=== PATIENT | female | born 1995 | race American Indian/Alaskan Native ===

== ENCOUNTER 2017-02-25 23:59 | Outpatient (CLI) | payer MEDICAID ==
[2017-02-26] MEDS ORDERED: LACTATED RINGERS 1,000 ML IV ONE (00:15)
[2017-02-26 00:49] LABS: Bacteria,Urine 1+ /HPF (Negative); Bilirubin,Urine NEG (Negative); Blood,Urine NEG (Negative); Ketones,Urine NEG (Negative); Leukocyte Esterase,Urine TR (Negative); Mucus,Urine 2+ /HPF; Nitrite,Urine NEG (Negative); Urobilinogen,Urine < 2.0 mg/dL (<2.0)
[2017-02-26 01:35] VITALS: BP 112/63
[2017-02-26] MEDS ORDERED: TYLENOL PO ONE (01:44)
== END 2017-02-26 01:56 | disposition home or self-care (01) ==
LOC: TRG 23:59
PROVIDERS: ATTEND Obstetrics & Gynecology
DX: O13.3 Gestational [pregnancy-induced] hypertension without significant proteinuria, third trimester (principal); O26.893 Other specified pregnancy related conditions, third trimester; R10.9 Unspecified abdominal pain; Z3A.30 30 weeks gestation of pregnancy
CPT/HCPCS: 59025; 81001

== ENCOUNTER 2017-12-26 07:35 | Emergency (ER) | payer MEDICAID ==
[2017-12-26 08:20] VITALS: BP 138/54
== END 2017-12-26 19:02 | disposition left against medical advice (07) ==
LOC: ED 07:35
DX: R20.0 Anesthesia of skin (principal); Z53.21 Procedure and treatment not carried out due to patient leaving prior to being seen by health care provider

== ENCOUNTER 2018-02-14 23:26 | Emergency (ER) | payer MEDICAID ==
[2018-02-15 01:24] LABS: Basophils # (Auto) 0.1 K/mm3 (0.0-0.1); Basophils % (Auto) 0.8 % (0.0-1.8); Eosinophils # (Auto) 0.6 K/mm3 (0.0-0.4); Eosinophils % (Auto) 8.4 % (0.0-4.3); Hematocrit 32.8 % (30.3-42.9); Hemoglobin 10.3 gm/dl (10.1-14.3); Lymphocytes # (Auto) 2.5 K/mm3 (1.2-5.4); Lymphocytes % (Auto) 37.5 % (13.4-35.0); Mean Corpuscular HGB Conc 31 % (30-34); Mean Corpuscular Volume 71 fl (79-97); Monocytes # (Auto) 0.4 K/mm3 (0.0-0.8); Monocytes % (Auto) 6.2 % (0.0-7.3); Platelet Count 282 K/mm3 (140-440); Red Cell Distribution Width 18.5 % (13.2-15.2)
[2018-02-15 01:40] LABS: Alanine Aminotransferase 9 units/L (7-56); Albumin 4.1 g/dL (3.9-5); BUN/Creatinine Ratio 18; Blood Urea Nitrogen 11 mg/dL (7-17); Hemolysis Index 0
[2018-02-15 01:53] LABS: Mean Corpuscular Hemoglobin 22 pg (28-32)
[2018-02-15 02:58] LABS: Bilirubin,Urine NEG (Negative); Blood,Urine NEG (Negative); Color,Urine Yellow (Yellow); Mucus,Urine 2+ /HPF; Protein,Urine <15 mg/dL mg/dL (Negative); Urobilinogen,Urine < 2.0 mg/dL (<2.0)
== END 2018-02-15 00:15 | disposition left against medical advice (07) ==
LOC: ED 23:26
DX: M79.641 Pain in right hand (principal); Z53.21 Procedure and treatment not carried out due to patient leaving prior to being seen by health care provider
CPT/HCPCS: 36415; 80053; 81001; 84703; 85025

== ENCOUNTER 2018-03-23 16:55 | Emergency (ER) | payer MEDICAID ==
[2018-03-23] MEDS ORDERED: NACL 0.9% 1000 ML 1,000 ML IV ONE (17:15)
[2018-03-23 17:48] LABS: Basophils % (Auto) 0.5 % (0.0-1.8); Eosinophils # (Auto) 0.1 K/mm3 (0.0-0.4); Eosinophils % (Auto) 2.2 % (0.0-4.3); Hematocrit 32.2 % (30.3-42.9); Hemoglobin 10.1 gm/dl (10.1-14.3); Lymphocytes # (Auto) 2.1 K/mm3 (1.2-5.4); Lymphocytes % (Auto) 38.1 % (13.4-35.0); Mean Corpuscular HGB Conc 31 % (30-34); Mean Corpuscular Volume 72 fl (79-97); Monocytes # (Auto) 0.5 K/mm3 (0.0-0.8); Monocytes % (Auto) 9.2 % (0.0-7.3); Platelet Count 280 K/mm3 (140-440); Red Blood Count 4.48 M/mm3 (3.65-5.03); Red Cell Distribution Width 18.4 % (13.2-15.2)
[2018-03-23 17:49] LABS: Mean Corpuscular Hemoglobin 23 pg (28-32)
[2018-03-23 18:20] LABS: Alanine Aminotransferase 11 units/L (7-56); Albumin 3.8 g/dL (3.9-5); BUN/Creatinine Ratio 15; Blood Urea Nitrogen 9 mg/dL (7-17); Calcium 9.2 mg/dL (8.4-10.2); Hemolysis Index 6; Lipase 16 units/L (13-60)
[2018-03-23 18:23] LABS: Bacteria,Urine 1+ /HPF (Negative); Bilirubin,Urine NEG (Negative); Blood,Urine SM (Negative); Color,Urine Yellow (Yellow); Mucus,Urine 3+ /HPF; Protein,Urine <15 mg/dL mg/dL (Negative)
[2018-03-23 21:03] LABS: HCG Qualitative,Urine Negative (Negative)
[2018-03-23] MEDS ORDERED: ALUM-MAG HYDROX-SIMETH 200-200-20MG/5ML PO ONE (21:19)
[2018-03-23] MEDS ORDERED: LIDOCAINE VISCOUS 2% PO ONE (21:19)
[2018-03-23] MEDS ORDERED: ZOFRAN ODT PO ONE (21:19)
--- NOTE | 2018-03-23 21:55 | Emergency Department Report ---
ED Abdominal Pain HPI - General Chief Complaint: Abdominal Pain Stated Complaint: ABDOM PAIN Time Seen by Provider: 03/23/18 21:08 Source: patient Mode of arrival: Ambulatory Limitations: No Limitations - History of Present Illness Initial Comments: 4 days of constant epigastric/left upper quadrant abdominal pain. Made worse sometimes with food. Associated with nausea, but no vomiting. Nonexertional. Not affected by urination. Severity scale (0 -10): 9 - Related Data Home Medications Medication Instructions Recorded Confirmed Last Taken Vit 90/Iron Fum/Folic 01/25/15 01/25/15 01/25/15 [ Formula] Previous Rx's Medication Instructions Recorded Last Taken Type Ondansetron [Zofran Odt] 4 mg PO Q8HR PRN #20 tab.rapdis 10/21/16 Unknown Rx Sucralfate [Carafate] 1 gm PO Q6HR PRN #1 bottle 03/23/18 Unknown Rx Allergies Allergy/AdvReac Type Severity Reaction Status Date / Time No Known Allergies Allergy Verified 08/29/13 01:12 ED Review of Systems ROS: Stated complaint: ABDOM PAIN Other details as noted in HPI ED Past Medical Hx - Past Medical History Previous Medical History?: Yes Hx Hypertension: No Hx Diabetes: No Hx Deep Vein Thrombosis: No Hx Renal Disease: No Hx Sickle Cell Disease: No Hx Seizures: No Hx Asthma: No Hx HIV: No Additional medical history: Gallstones - Surgical History Past Surgical History?: Yes Additional Surgical History: x 2 - Social History Smoking Status: Never Smoker Substance Use Type: None - Medications Home Medications: Home Medications Medication Instructions Recorded Confirmed Last Taken Type Vit 90/Iron Fum/Folic 01/25/15 01/25/15 01/25/15 History [ Formula] Ondansetron [Zofran Odt] 4 mg PO Q8HR PRN #20 tab.rapdis 10/21/16 Unknown Rx Sucralfate [Carafate] 1 gm PO Q6HR PRN #1 bottle 03/23/18 Unknown Rx ED Physical Exam - General Limitations: No Limitations ED Course Vital Signs 03/23/18 03/23/18 17:12 20:30 Temperature 98.3 F 97.9 F Pulse Rate 89 80 Respiratory 20 20 Rate Blood Pressure 133/90 Blood Pressure 148/94 [Left] O2 Sat by Pulse 99 100 Oximetry ED Medical Decision Making - Lab Data Result diagrams: 03/23/18 17:22 03/23/18 17:22 - Medical Decision Making 22-year-old female with past medical history of gallstones that presents to the ER with epigastric and left upper quadrant abdominal pain. Patient is well- appearing. Vital signs are stable. Labwork unremarkable. Patient was given a GI cocktail, which greatly appreciated or symptoms. Likely patient is having gastritis. No risk factors for PE. Patient is perc negative. She'll be discharged on a daily Pepcid with Carafate as needed. - Differential Diagnosis pe, acs, gastritis, gerd, biliary colic, pancreatitis, constipation, uti, Critical care attestation.: If time is entered above; I have spent that time in minutes in the direct care of this critically ill patient, excluding procedure time. ED Disposition Clinical Impression: Gastritis Disposition: DC-01 TO HOME OR SELFCARE Is pt being admited?: No Condition: Stable Instructions: Abdominal Pain (ED), Gastritis (ED), Diet for Ulcers and Gastritis (ED) Additional Instructions: Start taking a daily 20 mg pepcid for the next week. This can be purchased over- the-counter. Prescriptions: Sucralfate [Carafate] 1 gm PO Q6HR PRN #1 bottle PRN Reason: stomach pain Referrals: PRIMARY CARE, [Primary Care Provider] - 3-5 Days
[2018-03-23 22:43] VITALS: BP 156/93
== END 2018-03-23 22:46 | disposition home or self-care (01) ==
LOC: ED 16:55
DX: K29.70 Gastritis, unspecified, without bleeding (principal)
CPT/HCPCS: 36415; 80053; 81001; 81025; 83690; 85025; 99283; Q0162

== ENCOUNTER 2019-05-30 17:56 | Emergency (ER) | payer MEDICAID ==
--- NOTE | 2019-05-30 18:05 | Emergency Department Report ---
Blank Doc - Documentation Documentation: This is a 24-year-old female that presents with left sided chest pain with some nausea. Deneis any SOB. denies any radiation of pain. This initial assessment/diagnostic orders/clinical plan/treatment(s) is/are subject to change based on patient's health status, clinical progression and re- assessment by fellow clinical providers in the ED. Further treatment and workup at subsequent clinical providers discretion. Patient/guardians urged not to elope from the ED as their condition may be serious if not clinically assessed and managed. Initial orders include: 1- Patient sent to [facility] for further evaluation and treatment 2-labs 3- EKG 4- CXR
[2019-05-30 18:06] VITALS: BP 139/58
[2019-05-30 19:03] LABS: Basophils % (Auto) 0.5 % (0.0-1.8); Eosinophils # (Auto) 0.2 K/mm3 (0.0-0.4); Eosinophils % (Auto) 3.8 % (0.0-4.3); Hematocrit 33.5 % (30.3-42.9); Hemoglobin 10.9 gm/dl (10.1-14.3); Lymphocytes # (Auto) 2.1 K/mm3 (1.2-5.4); Lymphocytes % (Auto) 37.9 % (13.4-35.0); Mean Corpuscular HGB Conc 32 % (30-34); Mean Corpuscular Volume 75 fl (79-97); Monocytes # (Auto) 0.4 K/mm3 (0.0-0.8); Platelet Count 230 K/mm3 (140-440); Red Blood Count 4.45 M/mm3 (3.65-5.03); Red Cell Distribution Width 18.9 % (13.2-15.2)
--- NOTE | 2019-05-30 19:14 | XRay Report ---
CHEST 2 VIEWS 1827 INDICATION / CLINICAL INFORMATION: Chest Pain. COMPARISON: 09/08/2018 FINDINGS: SUPPORT DEVICES: None. HEART / MEDIASTINUM: No significant abnormality. LUNGS / PLEURA: No significant pulmonary or pleural abnormality. No pneumothorax. ADDITIONAL FINDINGS: No significant additional findings. IMPRESSION: No significant acute abnormality Signer Name: Wesly Randolph MD Signed: 05/30/2019 7:10 PM Workstation Name: [id number]
[2019-05-30 19:26] LABS: BUN/Creatinine Ratio 10; Blood Urea Nitrogen 6 mg/dL (7-17); Calcium 9.4 mg/dL (8.4-10.2); Hemolysis Index 11
[2019-05-30] MEDS ORDERED: LIDOCAINE VISCOUS 2% PO ONE (20:51)
[2019-05-30] MEDS ORDERED: ALUM-MAG HYDROX-SIMETH 200-200-20MG/5ML PO ONE (20:51)
[2019-05-30] MEDS ORDERED: TYLENOL PO ONE (20:51)
--- NOTE | 2019-05-30 21:49 | Emergency Department Report ---
ED Chest Pain HPI - General Chief Complaint: Chest Pain Stated Complaint: CHEST PAIN Time Seen by Provider: 05/30/19 18:04 Source: patient Mode of arrival: Ambulatory Limitations: No Limitations - History of Present Illness Initial Comments: This is a 24-year-old female that presents with left sided chest pain with some nausea intermittent over past month . Deneis any SOB. denies any radiation of pain. no diaphoresis no no back pain MD Complaint: chest pain Onset/Timin -: month(s) Onset: after eating Pain Location: left chest Severity: moderate Severity scale (0 -10): 3 Quality: sharp Consistency: intermittent Improves With: nothing Worsens With: nothing re: nausea, vomting Other Symptoms: acid taste in mouth, burping Treatments Prior to Arrival: none - Related Data Home Medications Medication Instructions Recorded Confirmed Last Taken Vit 90/Iron Fum/Folic 01/25/15 01/25/15 01/25/15 [ Formula] Previous Rx's Medication Instructions Recorded Last Taken Type Sucralfate [Carafate] 1 gm PO Q6HR PRN #1 bottle 03/23/18 Unknown Rx Acetaminophen [Acetaminophen TAB] 650 mg PO Q6HR PRN #30 tablet 05/30/19 Unknown Rx Ondansetron [Zofran ODT TAB] 4 mg PO Q8HR PRN #20 tab.rapdis 05/30/19 Unknown Rx Allergies Allergy/AdvReac Type Severity Reaction Status Date / Time No Known Allergies Allergy Verified 08/29/13 01:12 Heart Score - HEART Score History: Slightly suspicious EKG: Normal Age: < 45 Risk factors: No known risk factors Troponin: < normal limit HEART Score: 0 ED Review of Systems ROS: Stated complaint: CHEST PAIN Other details as noted in HPI Constitutional: denies: chills, fever Eyes: denies: eye pain, eye discharge, vision change ENT: denies: ear pain, throat pain Respiratory: denies: cough, shortness of breath, wheezing Cardiovascular: chest pain. denies: palpitations Endocrine: no symptoms reported Gastrointestinal: nausea, vomiting. denies: abdominal pain, diarrhea, constipation, hematemesis, melena Genitourinary: denies: urgency, dysuria, frequency, hematuria, discharge, dyspareunia Musculoskeletal: denies: back pain, joint swelling, arthralgia Skin: denies: rash, lesions Neurological: denies: headache, weakness, paresthesias Psychiatric: denies: anxiety, depression Hematological/Lymphatic: denies: easy bleeding, easy bruising ED Past Medical Hx - Past Medical History Previous Medical History?: Yes Hx Hypertension: No Hx Diabetes: No Hx Deep Vein Thrombosis: No Hx Renal Disease: No Hx Sickle Cell Disease: No Hx Seizures: No Hx Asthma: No Hx HIV: No Additional medical history: Gallstones - Surgical History Past Surgical History?: Yes Additional Surgical History: x 2 - Social History Smoking Status: Never Smoker Substance Use Type: None - Medications Home Medications: Home Medications Medication Instructions Recorded Confirmed Last Taken Type Vit 90/Iron Fum/Folic 01/25/15 01/25/15 01/25/15 History [ Formula] Sucralfate [Carafate] 1 gm PO Q6HR PRN #1 bottle 03/23/18 Unknown Rx Acetaminophen [Acetaminophen TAB] 650 mg PO Q6HR PRN #30 tablet 05/30/19 Unknown Rx Ondansetron [Zofran ODT TAB] 4 mg PO Q8HR PRN #20 tab.rapdis 05/30/19 Unknown Rx ED Physical Exam - General Limitations: No Limitations General appearance: alert, in no apparent distress - Head Head exam: Present: atraumatic, normocephalic - Eye Eye exam: Present: normal appearance, PERRL, EOMI Pupils: Present: normal accommodation - ENT ENT exam: Present: mucous membranes moist, TM's normal bilaterally. Absent: normal orophraynx, normal external ear exam - Neck Neck exam: Present: normal inspection, full ROM. Absent: tenderness, meningismus, lymphadenopathy, thyromegaly - Respiratory Respiratory exam: Present: normal lung sounds bilaterally, chest wall tenderness. Absent: respiratory distress, wheezes, rales, rhonchi, stridor - Cardiovascular Cardiovascular Exam: Present: regular rate, normal rhythm, normal heart sounds. Absent: systolic murmur, diastolic murmur, rubs, gallop - GI/Abdominal GI/Abdominal exam: Present: soft, normal bowel sounds. Absent: distended, tenderness, guarding, rebound, rigid, bruit, hernia - Rectal Rectal exam: Present: deferred - Extremities Exam Extremities exam: Present: normal inspection, full ROM, normal capillary refill. Absent: tenderness, pedal edema, joint swelling, calf tenderness - Back Exam Back exam: Present: normal inspection, full ROM. Absent: tenderness, CVA tenderness (R), CVA tenderness (L), muscle spasm, paraspinal tenderness, vertebral tenderness, rash noted - Neurological Exam Neurological exam: Present: alert, oriented X3, CN II-XII intact, normal gait, reflexes normal. Absent: motor sensory deficit - Psychiatric Psychiatric exam: Present: normal affect, normal mood - Skin Skin exam: Present: warm, dry, intact, normal color. Absent: rash ED Course Vital Signs 05/30/19 18:04 Temperature 98.7 F Pulse Rate 80 Respiratory 16 Rate Blood Pressure 139/58 [Left] O2 Sat by Pulse 100 Oximetry BERNARD score - Bernard Score Age > 65: (0) No Aspirin use within the Past 7 Days: (0) No 3 or more CAD Risk Factors: (0) No 2 or more Angina events in past 24 hrs: (0) No Known CAD with more than 50% Stenosis: (0) No Elevated Cardiac Markers: (0) No ST Deviation Greater than 0.5mm: (0) No BERNARD Score: 0 ED Medical Decision Making - Lab Data Result diagrams: 05/30/19 18:48 05/30/19 18:48 Labs 05/30/19 05/30/19 05/30/19 18:48 18:48 18:48 WBC 5.5 RBC 4.45 Hgb 10.9 Hct 33.5 MCV 75 L MCH 24 L MCHC 32 RDW 18.9 H Plt Count 230 Lymph % (Auto) 37.9 H [place] % (Auto) 7.0 Eos % (Auto) 3.8 Baso % (Auto) 0.5 Lymph # 2.1 [place] # 0.4 Eos # 0.2 Baso # 0.0 Seg Neutrophils % 50.8 Seg Neutrophils # 2.8 Sodium 134 L Potassium 4.0 Chloride 101.5 Carbon Dioxide 19 L Anion Gap 18 BUN 6 L Creatinine 0.6 L Estimated GFR > 60 BUN/Creatinine Ratio 10 Glucose 76 Calcium 9.4 Troponin T < 0.010 HCG, Qual Positive HCG, Quant 05/30/19 20:58 WBC RBC Hgb Hct MCV MCH MCHC RDW Plt Count Lymph % (Auto) [place] % (Auto) Eos % (Auto) Baso % (Auto) Lymph # [place] # Eos # Baso # Seg Neutrophils % Seg Neutrophils # Sodium Potassium Chloride Carbon Dioxide Anion Gap BUN Creatinine Estimated GFR BUN/Creatinine Ratio Glucose Calcium Troponin T HCG, Qual HCG, Quant 52450 H - EKG Data EKG shows normal: sinus rhythm, axis, intervals, QRS complexes, ST-T waves Rate: normal - EKG Data Interpretation: normal EKG (EKG interp by ed attending ) - Radiology Data Radiology results: report reviewed, image reviewed Ordering Physician: ROMEO HERNANDEZ NP Date of Service: 05/30/19 Procedure(s): XR chest routine 2V Accession Number(s): [id number] cc: ROMEO HERNANDEZ NP Fluoro Time In Minutes: CHEST 2 VIEWS 1827 INDICATION / CLINICAL INFORMATION: Chest Pain. COMPARISON: 09/08/2018 FINDINGS: SUPPORT DEVICES: None. HEART / MEDIASTINUM: No significant abnormality. LUNGS / PLEURA: No significant pulmonary or pleural abnormality. No pneumothorax. ADDITIONAL FINDINGS: No significant additional findings. IMPRESSION: No significant acute abnormality Signer Name: Wesly Randolph MD Signed: 05/30/2019 7:10 PM Workstation Name: [id number] Transcribed By: GJ Dictated By: Wesly Randolph MD Electronically Authenticated By: Wesly Randolph MD Signed Date/Time: 05/30/191909 DD/ 08 TD/TT: - Medical Decision Making CXR normal no infiltrates no opacities, US: single IUP 7 weeks and 2 days, PERC PE: 0, there is no lower extrem edema, no sob , heart score is 0, BERNARD score is 0, pain relieved by GI cocktail plan dc to helf in stable condition, pt accompanies by. Critical care attestation.: If time is entered above; I have spent that time in minutes in the direct care of this critically ill patient, excluding procedure time. ED Disposition Clinical Impression: GERD (gastroesophageal reflux disease) Qualifiers: Esophagitis presence: without esophagitis Qualified Code(s): K21.9 - Gastro-esophageal reflux disease without esophagitis Qualifiers: Weeks of gestation: less than 8 weeks Qualified Code(s): Z3A.01 - Less than 8 weeks gestation of Disposition: DC-01 TO HOME OR SELFCARE Is pt being admited?: No Does the pt Need Aspirin: No Condition: Stable Instructions: (ED), Chest Pain (ED) Additional Instructions: ekg : NSR, cxr: normal, US Abd pelvis, pos preg, hcg quant tylenol, zofran, follow up with pcp in 2-3 days Prescriptions: Acetaminophen [Acetaminophen TAB] 650 mg PO Q6HR PRN #30 tablet PRN Reason: Pain Ondansetron [Zofran ODT TAB] 4 mg PO Q8HR PRN #20 tab.rapdis PRN Reason: Nausea And Vomiting Referrals: PRIMARY CARE, [Primary Care Provider] - 3-5 Days [facility] [Provider Group] - 3-5 Days Forms: Work/School Release Form(ED) Time of Disposition: 22:05
--- NOTE | 2019-05-30 21:51 | Ultrasound Report ---
OB ultrasound FINDINGS: Viable intrauterine is seen with crown-rump length measurements corresponding to an MA of 7 weeks 2 days for an THO of 01/14/2020. This is ahead of the clinical dates by almost 3 week s. heart rate is 133 bpm. Left ovary is normal. Right ovary contains a 2.2 cm cyst. No hemorrha ge or free fluid. No significant abnormality. IMPRESSION: Viable 7 week 2 day IUP. Signer Name: Francis Greer MD Signed: 05/30/2019 9:46 PM Workstation Name: [id number]
[2019-05-30 22:40] LABS: Bilirubin,Urine NEG (Negative); Blood,Urine NEG (Negative); Color,Urine Yellow (Yellow); Mucus,Urine 2+ /HPF; Urobilinogen,Urine < 2.0 mg/dL (<2.0)
== END 2019-05-30 22:17 | disposition home or self-care (01) ==
LOC: ED 17:56
DX: O99.611 Diseases of the digestive system complicating pregnancy, first trimester (principal); K21.9 Gastro-esophageal reflux disease without esophagitis; Z79.899 Other long term (current) drug therapy; Z3A.01 Less than 8 weeks gestation of pregnancy
CPT/HCPCS: 36415; 71046; 76801; 80048; 81001; 84484; 84702; 84703; 85025; 93005; 93010

== ENCOUNTER 2019-06-06 15:07 | Emergency (ER) | payer MEDICAID ==
--- NOTE | 2019-06-06 15:25 | Emergency Department Report ---
Blank Doc - Documentation Documentation: 24-year-old female that presents with chest tightness and sob. Stated is 7 we eks . This initial assessment/diagnostic orders/clinical plan/treatment(s) is/are subject to change based on patient's health status, clinical progression and re- assessment by fellow clinical providers in the ED. Further treatment and workup at subsequent clinical providers discretion. Patient/guardians urged not to elope from the ED as their condition may be serious if not clinically assessed and managed. Initial orders include: 1- Patient sent to [facility] for further evaluation and treatment 2- labs 3- EKG 4- UA
[2019-06-06 15:26] VITALS: BP 124/88
[2019-06-06 15:49] LABS: Basophils # (Auto) 0.1 K/mm3 (0.0-0.1); Basophils % (Auto) 0.9 % (0.0-1.8); Eosinophils % (Auto) 0.8 % (0.0-4.3); Hematocrit 34.5 % (30.3-42.9); Hemoglobin 11.2 gm/dl (10.1-14.3); Lymphocytes # (Auto) 1.7 K/mm3 (1.2-5.4); Lymphocytes % (Auto) 29.4 % (13.4-35.0); Mean Corpuscular HGB Conc 33 % (30-34); Mean Corpuscular Volume 76 fl (79-97); Monocytes # (Auto) 0.4 K/mm3 (0.0-0.8); Monocytes % (Auto) 6.9 % (0.0-7.3); Platelet Count 260 K/mm3 (140-440); Red Blood Count 4.56 M/mm3 (3.65-5.03); Red Cell Distribution Width 18.4 % (13.2-15.2)
[2019-06-06 15:59] LABS: INR 1.06 (0.87-1.13)
[2019-06-06 16:00] LABS: Partial Thromboplastin Time 29.3 Sec. (24.2-36.6)
[2019-06-06 16:14] LABS: BUN/Creatinine Ratio 8; Blood Urea Nitrogen 4 mg/dL (7-17); Calcium 9.3 mg/dL (8.4-10.2); Hemolysis Index 19
[2019-06-06] MEDS ORDERED: ZOFRAN IV ONE (19:07)
[2019-06-06] MEDS ORDERED: CARAFATE PO ONE (19:07)
--- NOTE | 2019-06-06 19:13 | Emergency Department Report ---
ED General Adult HPI - General Chief complaint: Chest Pain Stated complaint: CHEST PAIN Time Seen by Provider: 06/06/19 15:24 Source: patient Mode of arrival: Stretcher Limitations: No Limitations - History of Present Illness Initial comments: 24-year-old -[place] female presents to the emergency room complaining of intermittent chest burning for 3 days. Patient states that she is 7 weeks . Patient states that it's worse when she vomits. She's been complaining of nausea and vomiting. She is 3 para 2 last menstrual period was 04/19/2019. Patient denies any abdominal pain denies any vaginal bleeding or vaginal discharge. Patient reports no complications during her previous and has no complications with the baby. Patient does report she had a history of gallbladder disease but still has her gallbladder. She currently is not under care. Onset/Timin -: days(s) Location: chest Radiation: non-radiation Severity scale (0 -10): 8 Quality: burning Consistency: intermittent Worsens with: other (vomiting) Associated Symptoms: nausea/vomiting - Related Data Home Medications Medication Instructions Recorded Confirmed Last Taken Vit 90/Iron Fum/Folic 01/25/15 01/25/15 01/25/15 [ Formula] Previous Rx's Medication Instructions Recorded Last Taken Type Sucralfate [Carafate] 1 gm PO Q6HR PRN #1 bottle 03/23/18 Unknown Rx Acetaminophen [Acetaminophen TAB] 650 mg PO Q6HR PRN #30 tablet 05/30/19 Unknown Rx Ondansetron [Zofran ODT TAB] 4 mg PO Q8HR PRN #20 tab.rapdis 05/30/19 Unknown Rx Doxylamine Succinate [Unisom] 25 mg PO BID PRN #40 tablet 06/06/19 Unknown Rx Vit-Fe Fumar-FA [ 1 tab PO QDAY #90 tablet 06/06/19 Unknown Rx Vitamin] Pyridoxine HCl (Vitamin B6) 25 mg PO BID PRN #40 tablet 06/06/19 Unknown Rx [Vitamin B-6 25MG TAB] Sucralfate [Carafate] 1 gm PO Q6HR PRN #20 tablet 06/06/19 Unknown Rx raNITIdine HCl [Zantac] 150 mg PO BID PRN #30 tablet 06/06/19 Unknown Rx Allergies Allergy/AdvReac Type Severity Reaction Status Date / Time No Known Allergies Allergy Verified 08/29/13 01:12 ED Review of Systems ROS: Stated complaint: CHEST PAIN Other details as noted in HPI Comment: All other systems reviewed and negative Gastrointestinal: nausea, vomiting ED Past Medical Hx - Past Medical History Hx Hypertension: No Hx Diabetes: No Hx Deep Vein Thrombosis: No Hx Renal Disease: No Hx Sickle Cell Disease: No Hx Seizures: No Hx Asthma: No Hx HIV: No Additional medical history: Gallstones - Surgical History Additional Surgical History: x 2 - Social History Smoking Status: Never Smoker Substance Use Type: None - Medications Home Medications: Home Medications Medication Instructions Recorded Confirmed Last Taken Type Vit 90/Iron Fum/Folic 01/25/15 01/25/15 01/25/15 History [ Formula] Sucralfate [Carafate] 1 gm PO Q6HR PRN #1 bottle 03/23/18 Unknown Rx Acetaminophen [Acetaminophen TAB] 650 mg PO Q6HR PRN #30 tablet 05/30/19 Un known Rx Ondansetron [Zofran ODT TAB] 4 mg PO Q8HR PRN #20 tab.rapdis 05/30/19 Unknown Rx Doxylamine Succinate [Unisom] 25 mg PO BID PRN #40 tablet 06/06/19 Unknown Rx Vit-Fe Fumar-FA [ 1 tab PO QDAY #90 tablet 06/06/19 Unknown Rx Vitamin] Pyridoxine HCl (Vitamin B6) 25 mg PO BID PRN #40 tablet 06/06/19 Unknown Rx [Vitamin B-6 25MG TAB] Sucralfate [Carafate] 1 gm PO Q6HR PRN #20 tablet 06/06/19 Unknown Rx raNITIdine HCl [Zantac] 150 mg PO BID PRN #30 tablet 06/06/19 Unknown Rx ED Physical Exam - General Limitations: No Limitations General appearance: alert, in no apparent distress - Head Head exam: Present: atraumatic, normocephalic - Eye Eye exam: Present: normal appearance - ENT ENT exam: Present: mucous membranes moist - Neck Neck exam: Present: normal inspection - Respiratory Respiratory exam: Present: normal lung sounds bilaterally. Absent: respiratory distress - Cardiovascular Cardiovascular Exam: Present: regular rate, normal rhythm. Absent: systolic murmur, diastolic murmur, rubs, gallop - GI/Abdominal GI/Abdominal exam: Present: soft, normal bowel sounds - Extremities Exam Extremities exam: Present: normal inspection - Back Exam Back exam: Present: normal inspection - Neurological Exam Neurological exam: Present: alert, oriented X3 - Psychiatric Psychiatric exam: Present: normal affect, normal mood - Skin Skin exam: Present: warm, dry, intact, normal color. Absent: rash ED Course Vital Signs 06/06/19 15:24 Temperature 98.7 F Pulse Rate 71 Respiratory 15 Rate Blood Pressure 124/88 [Left] O2 Sat by Pulse 99 Oximetry ED Medical Decision Making - Lab Data Result diagrams: 06/06/19 15:40 06/06/19 15:40 - Medical Decision Making 24-year-old -[place] female presents to the emergency room complaining of intermittent chest burning for 3 days. Patient states that she is 7 weeks . Patient states that it's worse when she vomits. She's been complaining of nausea and vomiting. She is 3 para 2 last menstrual period was 04/19/2019. Patient denies any abdominal pain denies any vaginal bleeding or vaginal discharge. Patient reports no complications during her previous and has no complications with the baby. Patient does report she had a history of gallbladder disease but still has her gallbladder. She currently is not under care. Please take Carafate only as needed. Zantac 150 mg twice a day. Take Unisom today in V6 twice a day. He can also take joshua root 250 mg every 4-6 hours as needed for nausea or vomiting. Start taking vitamins. Take vitamins. Critical care attestation.: If time is entered above; I have spent that time in minutes in the direct care of this critically ill patient, excluding procedure time. ED Disposition Clinical Impression: Nausea and vomiting during Disposition: DC-01 TO HOME OR SELFCARE Is pt being admited?: No Does the pt Need Aspirin: No Condition: Stable Instructions: Acute Nausea and Vomiting (ED) Prescriptions: Sucralfate [Carafate] 1 gm PO Q6HR PRN #20 tablet PRN Reason: Pain , Severe (7-10) Vit-Fe Fumar-FA [ Vitamin] 1 tab PO QDAY #90 tablet Doxylamine Succinate [Unisom] 25 mg PO BID PRN #40 tablet PRN Reason: Nausea And Vomiting Pyridoxine HCl (Vitamin B6) [Vitamin B-6 25MG TAB] 25 mg PO BID PRN #40 tablet PRN Reason: Nausea And Vomiting raNITIdine HCl [Zantac] 150 mg PO BID PRN #30 tablet PRN Reason: Pain , Severe (7-10) Referrals: PRIMARY CARE, [Primary Care Provider] - 3-5 Days [facility] [Provider Group] - 3-5 Days DORYS BOYKIN MD [Staff Physician] - 3-5 Days Forms: Work/School Release Form(ED)
[2019-06-06] MEDS ORDERED: ZOFRAN ODT ONE (19:51)
== END 2019-06-06 19:51 | disposition home or self-care (01) ==
LOC: ED 15:07
DX: O21.8 Other vomiting complicating pregnancy (principal); O26.891 Other specified pregnancy related conditions, first trimester; R07.9 Chest pain, unspecified; Z87.42 Personal history of other diseases of the female genital tract; Z79.899 Other long term (current) drug therapy; Z3A.01 Less than 8 weeks gestation of pregnancy
CPT/HCPCS: 36415; 80048; 84484; 84702; 85025; 85610; 85730; 93005; 93010; 99284; J2405; Q0162

== ENCOUNTER 2021-03-19 05:45 | Day surgery (SDC) | payer MEDICAID, OTHER ==
[2021-03-17 13:46] LABS: Hematocrit 32.3 % (30.3-42.9); Mean Corpuscular HGB Conc 34 % (30-34); Mean Corpuscular Volume 77 fl (79-97); Platelet Count 297 K/mm3 (140-440); Red Blood Count 4.21 M/mm3 (3.65-5.03); Red Cell Distribution Width 17.3 % (13.2-15.2)
--- NOTE | 2021-03-17 18:57 | History and Physical Report ---
History of Present Illness Date of examination: 03/17/21 Chief complaint: chronic pelvic pain History of present illness: 25 yo c/b Class III Obesity, prior c/s x 2, asthma, ?CHTN, hx Gallstones presenting for surgical management of chronic pelvic pain. Past History Past Medical History: asthma, hypertension, other (gallstones) Past Surgical History: section (x2) Family/Genetic History: hypertension Social history: no significant social history - Obstetrical History : 2 Para: 2 Number of Living Children: 2 Medications and Allergies Allergies Allergy/AdvReac Type Severity Reaction Status Date / Time No Known Allergies Allergy Verified 08/29/13 01:12 Home Medications Medication Instructions Recorded Confirmed Last Taken Type No Known Home Medications [No 03/16/21 03/16/21 Unknown History Reported Home Medications] Review of Systems All systems: negative (expect HPI) - Vital Signs Vital signs: Vital Signs Temp Pulse Resp BP Pulse Ox 97.7 F 97 H 20 159/90 97 03/17/21 12:25 03/17/21 12:25 03/17/21 12:25 03/17/21 12:25 03/17/21 12:25 Temp Pulse Resp BP Pulse Ox 97.7 F 97 H 20 159/90 97 03/17/21 12:25 03/17/21 12:25 03/17/21 12:25 03/17/21 12:25 03/17/21 12:25 - Physical Exam Cardiovascular: Regular rate Lungs: Positive: Clear to auscultation Abdomen: Positive: normal appearance, normal bowel sounds Results Result Diagrams: 03/17/21 12:35 Abnormal lab results 03/17/21 Range/Units 12:35 WBC 4.2 L (4.5-11.0) K/mm3 MCV 77 L (79-97) fl MCH 26 L (28-32) pg RDW 17.3 H (13.2-15.2) % All other labs normal. Assessment and Plan - Patient Problems (1) Chronic pelvic pain in female Status: Acute Plan to address problem: To OR for Robotic assisted laparoscopic diagnostic laparoscopy, possible lysis of adhesion, any other indicated procedures for chronic pelvic pain, concerning for adhesive disease --Questions solicited and answered --Consented in the chart
[2021-03-19] MEDS ORDERED: ACETAMINOPHEN 500 MG TAB PO SCH (06:00)
[2021-03-19] MEDS ORDERED: SCOPOLAMINE TRANSDERMAL PATCH 72 HR TD NR (06:00)
[2021-03-19] MEDS ORDERED: CELECOXIB 200 MG CAP PO NR (06:00)
[2021-03-19] MEDS ORDERED: MIDAZOLAM 2 MG/2 ML INJ IV NR (06:00)
[2021-03-19] MEDS ORDERED: GABAPENTIN 300 MG CAP PO NR (06:00)
[2021-03-19] MEDS ORDERED: LACTATED RINGERS 1,000 ML IV SCH (06:00)
[2021-03-19] MEDS ORDERED: fentaNYL 100 MCG/2 ML INJ ONE (07:05)
[2021-03-19] MEDS ORDERED: propofoL 200 MG/20 ML VIAL IV ONE (07:05)
[2021-03-19] MEDS ORDERED: ROCURONIUM 50 MG/5 ML INJ IV ONE ×3 (07:13→10:21)
[2021-03-19] MEDS ORDERED: ONDANSETRON 4 MG/2 ML INJ ONE (07:13)
[2021-03-19] MEDS ORDERED: dexAMETHasone 20 MG/5 ML VIAL ONE ×3 (07:13→07:14)
[2021-03-19] MEDS ORDERED: MINERAL OIL/PETROLATUM, WHITE OPHTH OINT 3.5 GM ONE (07:13)
[2021-03-19] MEDS ORDERED: LIDOCAINE MPF (2%) 20 MG/1 ML VIAL 5 ML ONE (07:15)
[2021-03-19] MEDS ORDERED: HYDROmorphone 1 MG/1 ML INJ ONE (07:18)
--- NOTE | 2021-03-19 07:20 | Anesthesia Consultation ---
Anesthesia Consult and Med Hx Date of service: 03/19/21 - Airway Anesthetic Teeth Evaluation: Good ROM Head & Neck: Adequate Mental/Hyoid Distance: Adequate Mallampati Class: Class II Intubation Access Assessment: Good - Pulmonary Exam CTA: Yes - Cardiac Exam Cardiac Exam: RRR - Pre-Operative Health Status ASA Pre-Surgery Classification: ASA2 Proposed Anesthetic Plan: General - Pulmonary Hx Smoking: No Hx Asthma: Yes (NO PROBLEMS IN OVER 1 YEAR) Hx Sleep Apnea: No - Cardiovascular System Hx Hypertension: No (DURING ONLY) - Central Nervous System Hx Seizures: No Hx Psychiatric Problems: No - Endocrine Hx Renal Disease: No Hx Hypothyroidism: No Hx Hyperthyroidism: No - Hematic Hx Anemia: No Hx Sickle Cell Disease: No - Other Systems Hx Alcohol Use: No Hx Substance Use: No Hx Cancer: No Hx Obesity: Yes (BMI-53.3 KG)
--- NOTE | 2021-03-19 07:21 | Anesthesia Day of Surgery ---
Anesthesia Day of Surgery - Day of Surgery Patient Examined: Yes Patient H&P Reviewed: Yes Patient is NPO: Yes
--- NOTE | 2021-03-19 07:22 | Anesthesia Consultation ---
Anesthesia Consult and Med Hx Date of service: 03/19/21 - Pre-Operative Health Status ASA Pre-Surgery Classification: ASA2 Proposed Anesthetic Plan: General - Pulmonary Hx Asthma: Yes (no recent inhaler use) Hx Respiratory Symptoms: No Hx Sleep Apnea: No - Cardiovascular System Hx Hypertension: Yes Hx Heart Attack/AMI: No - Central Nervous System CVA: No - Endocrine Hx Renal Disease: No Hx Liver Disease: No Hx Insulin Dependent Diabetes: No Hx Non-Insulin Dependent Diabetes: No Hx Thyroid Disease: No - Other Systems Hx Obesity: Yes (BMI 53)
[2021-03-19] MEDS ORDERED: oxyCODONE /ACETAMINOPHEN 5-325MG TAB PO PRN ×2 (07:23→11:30)
[2021-03-19] MEDS ORDERED: HYDROmorphone 1 MG/1 ML INJ IV PRN (07:23)
[2021-03-19] MEDS ORDERED: ONDANSETRON 4 MG/2 ML INJ IV PRN (07:23)
[2021-03-19] MEDS ORDERED: NEOSTIGMINE 10MG/10 ML INJ MDV ONE (07:30)
[2021-03-19] MEDS ORDERED: KETOROLAC 30 MG/1 ML INJ ONE (07:30)
[2021-03-19] MEDS ORDERED: GLYCOPYRROLATE 0.4 MG/2 ML INJ ONE (07:30)
[2021-03-19] MEDS ORDERED: BUPIVACAINE/PF (0.5%) 5 MG/1 ML 30 ML VIAL INFILTRATI ONE ×2 (07:55→10:06)
[2021-03-19] MEDS ORDERED: SODIUM CHLORIDE 0.9% IRRIG SOLN 2000 ML IR ONE (10:06)
[2021-03-19] MEDS ORDERED: SODIUM CHLORIDE 0.9% IRR 1,500 ML BOTTLE IR ONE (10:06)
--- NOTE | 2021-03-19 11:08 | Procedure Note ---
Date of procedure: 03/19/21 Pre-op diagnosis: chronic pelvic pain Post-op diagnosis: same Procedure: Preoperative diagnosis: 1. Chronic pelvic pain 2/2 adhesions Postoperative diagnosis: Same Operation performed: 1. Exam under anesthesia 2. Robot assisted diagnostic laparoscopy 3. Lysis of adhesions Surgeon: Wes Villegas Cleaning Team Member: Matilde Eason Anesthesia: General endotracheal anesthesia EBL 20 cc IVF 1000 cc UOP 250cc Pathology specimens: 1. none Complications: none Disposition and condition: To the PACU in stable condition Findings: 1. 8 wk size mobile uterus 2. Dense anterior wall adhesions connecting the anterior abdominal wall to the uterine corpus 3. Normal adnexa, appendix, liver, gallbladder Statement of Medical Necessity: 25 yo G 2 P 2 history of chronic pelvic pain presenting for operative management and evaluation of possible adhesive disease secondary to previous operative surgery. Patient tried various medical options, however she continued to have symptoms. The procedure risk, benefits, indications and alternatives were reviewed with patient. She desired definitive surgical management and declined further medical management of her condition. Description of operation: After obtaining informed consent the patient was taken to the operating room where satisfactory general endotracheal anesthesia was established. The patient was placed in supine position ensuring proper positioning and cushioning to avoid nerve injury. The arms were tucked at the beginning of the procedure. An exam under anesthesia was performed with the findings noted below. She was prepped and draped in the usual sterile fashion. A Najera catheter was placed. A medium VCare manipulator was placed without difficulty and sutured to the cervix anteriorly and posteriorly. Starting with the accessory port, a 8 mm incision was made at the left midclavicular line and a 5 mm Airseal trocar was placed without difficulty. Pneumoperitoneum was obtained to 15L CO2. The abdomen was inspected with the findings noted above. Next, the 12 mm robotic trocar was placed at the umbilicus for the camera port. Next, a 8 mm robotic trocar was placed in the left lateral aspect of the abdomen, superior and medial to the left ASIS. The last 8mm robotic trocar was placed on contralateral right side in a similar fashion. The patient was then placed in steep Trendelenburg position to allow for the intestines to enter into the upper abdomen. Next, the robot was docked with the patient that difficulty. First, the ureters were identified bilaterally with peristalsis noted. Using combination of the vessel sealer, prograsp grasper, and monopolar scissors with energy the adhesions were taken down stepwise in order to avoid injury to the surrounding anatomy. On 2 separate occasions the bladder was backfilled with approximately 180 cc of normal saline in order to visualize the bladder wall in order to avoid injury. The anatomy was restored and Interceed was used on the anterior uterine corpus in order to avoid recurrence of adhesions. The 12 mm camera trocar was removed. The Freeman Nielsen closure device was used in order to close the 12 mm trocar port the fascial level. The patient was returned to dorsal supine position. The remaining trochars were removed without difficulty and the pneumoperitoneum was reduced. The laparoscopic incisions were closed with 4-0 Monocryl and dressed with Dermabond. The patient was extubated without difficulty and taken to recovery room in stable condition. There were no surgical anesthetic complications. Anesthesia: RACHEL Surgeon: WES VILLEGAS JR Cleaning Team Member: MAN EASON Estimated blood loss: other (20cc) IV fluids: 1,000 Urine output: 250 Pathology: none Condition: stable Disposition: same day
[2021-03-19] MEDS ORDERED: hydrALAZINE 20 MG/1 ML INJ IV PRN (11:18)
[2021-03-19] MEDS ORDERED: IBUPROFEN 600 MG TAB PO PRN (11:30)
--- NOTE | 2021-03-19 13:37 | Post Anesthesia Evaluation ---
- Post Anesthesia Evaluation Patient Participated: Yes Airway Patent: Yes Stable Respiratory Function: Yes Nausea/Vomiting: Yes (nausea, improved with IV antiemetics) Temp > 96.8F: Yes Pain Manageable: Yes Adequeate Hydration: Yes Anesthesia Complications: No
[2021-03-19 16:06] VITALS: BP 143/69
== END 2021-03-19 05:46 | disposition home or self-care (01) ==
LOC: OR 05:45
PROVIDERS: ATTEND Obstetrics & Gynecology
DX: R10.2 Pelvic and perineal pain (principal); G89.29 Other chronic pain; N73.6 Female pelvic peritoneal adhesions (postinfective); Z20.822 Contact with and (suspected) exposure to COVID-19; E66.01 Morbid (severe) obesity due to excess calories; I10 Essential (primary) hypertension; J45.909 Unspecified asthma, uncomplicated; K21.9 Gastro-esophageal reflux disease without esophagitis; Z79.899 Other long term (current) drug therapy; Z98.891 History of uterine scar from previous surgery; Z87.440 Personal history of urinary (tract) infections; Z83.3 Family history of diabetes mellitus; Z68.43 Body mass index [BMI] 50.0-59.9, adult; Z82.49 Family history of ischemic heart disease and other diseases of the circulatory system
CPT/HCPCS: 36415; 58578; 84703; 85027; 86850; 86900; 86901; A4217; C1765; J0360; J1100; J1170; J1885; J2250; J2405; J2704; J2710; J3010; J3490; J7120; S2900; U0003

== ENCOUNTER 2021-03-20 19:11 | Emergency (ER) | payer MEDICAID ==
[2021-03-20] MEDS ORDERED: ASPIRIN 325 MG TAB PO ONE (19:40)
[2021-03-20] MEDS ORDERED: LORazepam 2 MG/ML VIAL IV ONE (19:40)
--- NOTE | 2021-03-20 19:45 | Event Note ---
ED Screening Note Date of service: 03/20/21 Time: 19:42 ED Screening Note: Patient is a 25-year-old -[place] female with a history of morbid obesity and anxiety who presents to the ED with complaint of acute onset persistent shortness of breath, chest pain, abdominal pain for the last 2 days after undergoing surgery to remove adhesions in her abdomen by her CRYPTOZOOLOGIST physician Dr. Ruiz patient denies dizziness, syncope, 2 days ago. Patient states that the shortness of breath is worse with ambulation or any exertion, and that this worsens the chest pain. Nausea and vomiting, diarrhea, headache, palpitations, change in vision or back pain, fever and chills. This initial assessment/diagnostic orders/clinical plan/treatment(s) is/are subject to change based on patients health status, clinical progression and re- assessment by fellow clinical providers in the ED. Further treatment and workup at subsequent clinical providers discretion. Patient/guardian urged not to elope from the ED as their condition may be serious if not clinically assessed and managed. Initial orders include: CBC, CMP, EKG, troponin, CTA chest
[2021-03-20 20:04] LABS: Basophils # (Auto) 0.1 K/mm3 (0.0-0.1); Basophils % (Auto) 0.8 % (0.0-1.8); Eosinophils % (Auto) 0.4 % (0.0-4.3); Hematocrit 32.4 % (30.3-42.9); Hemoglobin 10.5 gm/dl (10.1-14.3); Lymphocytes # (Auto) 2.4 K/mm3 (1.2-5.4); Lymphocytes % (Auto) 32.7 % (13.4-35.0); Mean Corpuscular HGB Conc 33 % (30-34); Mean Corpuscular Volume 78 fl (79-97); Monocytes # (Auto) 0.4 K/mm3 (0.0-0.8); Monocytes % (Auto) 5.8 % (0.0-7.3); Platelet Count 306 K/mm3 (140-440); Red Blood Count 4.17 M/mm3 (3.65-5.03)
[2021-03-20 20:29] LABS: Alanine Aminotransferase 10 units/L (7-56); Albumin 3.9 g/dL (3.9-5); Blood Urea Nitrogen 8 mg/dL (7-17); Hemolysis Index 3
[2021-03-20 20:30] LABS: BUN/Creatinine Ratio 11
[2021-03-20] MEDS ORDERED: ONDANSETRON 4 MG/2 ML INJ IV ONE (22:26)
[2021-03-20] MEDS ORDERED: MORPHINE 4 MG/1 ML INJ IV ONE (22:26)
--- NOTE | 2021-03-20 22:30 | Emergency Department Report ---
ED Shortness of Breath HPI - General Chief Complaint: Dyspnea/Respdistress Stated Complaint: PAIN AFTER SURGERY/CHEST PAIN Time Seen by Provider: 03/20/21 22:23 Source: patient Mode of arrival: Ambulatory Limitations: No Limitations - History of Present Illness Initial Comments: Patient is 25 years old morbidly obese female with no significant past medical history. Patient presented to the ER complaining of diffuse chest pain, sharp in nature associated with shortness of breath. Patient stated the pain increased with deep inspiration. Patient stated that pain and shortness of breath increase with movement. Patient had an gynecological surgery yesterday by Dr. Ruiz for adhesion release per patient report. Patient denied any fever, chills or cough. MD Complaint: shortness of breath, chest pain, pain with inspiration -: days(s) (2) Severity: moderate Pain Scale: 6 Quality: sharp Consistency: constant Worsens With: movement Treatments Prior to Arrival: none - Related Data Previous Rx's Medication Instructions Recorded Last Taken Type oxyCODONE /ACETAMINOPHEN [Percocet 1 tab PO Q6H PRN #30 tablet 03/19/21 Unknown Rx 5/325 mg] Allergies Allergy/AdvReac Type Severity Reaction Status Date / Time No Known Allergies Allergy Verified 08/29/13 01:12 ED Review of Systems ROS: Stated complaint: PAIN AFTER SURGERY/CHEST PAIN Other details as noted in HPI Comment: All other systems reviewed and negative Constitutional: denies: chills, fever Respiratory: shortness of breath, SOB with exertion, SOB at rest. denies: cough, wheezing Cardiovascular: chest pain Gastrointestinal: denies: abdominal pain, nausea, vomiting Musculoskeletal: denies: back pain Neurological: denies: headache, weakness, numbness, paresthesias, confusion ED Past Medical Hx - Past Medical History Previous Medical History?: Yes Hx Hypertension: Yes Hx Heart Attack/AMI: No Hx Diabetes: No Hx Deep Vein Thrombosis: No Hx GERD: Yes Hx Liver Disease: No Hx Renal Disease: No Hx Sickle Cell Disease: No Hx Headaches / Migraines: Yes Hx Seizures: No Hx Asthma: Yes (no recent inhaler use) Hx Tuberculosis: No Hx HIV: No Additional medical history: Gallstones. Morbid Obesity - Surgical History Past Surgical History?: Yes Additional Surgical History: x 2. Lysis of adhesions - Social History Smoking Status: Never Smoker Substance Use Type: None - Medications Home Medications: Home Medications Medication Instructions Recorded Confirmed Last Taken Type oxyCODONE /ACETAMINOPHEN [Percocet 1 tab PO Q6H PRN #30 tablet 03/19/21 Unknown Rx 5/325 mg] ED Physical Exam - General Limitations: No Limitations General appearance: alert, in no apparent distress - Head Head exam: Present: atraumatic, normocephalic, normal inspection - Eye Eye exam: Present: normal appearance, PERRL - ENT ENT exam: Present: normal exam, normal orophraynx, mucous membranes moist - Neck Neck exam: Present: normal inspection, full ROM. Absent: tenderness, meningismus - Respiratory Respiratory exam: Present: normal lung sounds bilaterally - Cardiovascular Cardiovascular Exam: Present: tachycardia - GI/Abdominal GI/Abdominal exam: Present: soft, normal bowel sounds. Absent: distended, tenderness, guarding, rebound, rigid, organomegaly, mass, bruit, pulsatile mass, hernia - Extremities Exam Extremities exam: Present: normal inspection, full ROM, normal capillary refill. Absent: tenderness, pedal edema, calf tenderness - Back Exam Back exam: Present: normal inspection, full ROM. Absent: CVA tenderness (R), CVA tenderness (L) - Neurological Exam Neurological exam: Present: alert, oriented X3, CN II-XII intact, normal gait, reflexes normal. Absent: motor sensory deficit - Psychiatric Psychiatric exam: Present: normal mood - Skin Skin exam: Present: warm, intact, normal color ED Course Vital Signs 03/20/21 03/21/21 03/21/21 19:32 00:22 00:23 Temperature 98.6 F Pulse Rate 102 H 82 Respiratory 18 18 18 Rate Blood Pressure 140/84 Blood Pressure 135/86 [Left] O2 Sat by Pulse 96 99 99 Oximetry 03/21/21 00:52 Temperature Pulse Rate Respiratory Rate Blood Pressure 139/79 Blood Pressure [Left] O2 Sat by Pulse 99 Oximetry ED Medical Decision Making - Lab Data Result diagrams: 03/20/21 19:52 03/20/21 19:52 - Radiology Data Radiology results: report reviewed - Medical Decision Making Patient is 25 years old morbidly obese female with no significant past medical history. Patient presented to the ER complaining of diffuse chest pain, sharp in nature associated with shortness of breath. Patient stated the pain increased with deep inspiration. Patient stated that pain and shortness of breath increase with movement. Patient had an gynecological surgery yesterday by Dr. Ruiz for adhesion release per patient report. Patient denied any fever, chills or cough. Patient received morphine and Zofran. Patient stated that she is feeling much better. Labs reviewed and is unremarkable. VQ scan of the chest is negative for pulmonary embolism. Chest x-ray is unremarkable. Patient given prescription for tramadol and Zofran and advised to follow-up with her primary care physician in the next 2 to 3 days and to return to the ER if he develop any symptoms Critical care attestation.: If time is entered above; I have spent that time in minutes in the direct care of this critically ill patient, excluding procedure time. ED Disposition Clinical Impression: Acute chest pain Disposition: DC-01 TO HOME OR SELFCARE Is pt being admited?: No Condition: Stable Instructions: Chest Pain (ED), Nonspecific Chest Pain, Adult Referrals: AARON AGUAYO MD [Primary Care Provider] - 3-5 Days
[2021-03-20 23:08] LABS: INR 0.9 (0.87-1.13)
[2021-03-20 23:09] LABS: Partial Thromboplastin Time 30.3 Sec. (24.2-36.6)
--- NOTE | 2021-03-21 00:12 | XRay Report ---
CHEST 1 VIEW INDICATION / CLINICAL INFORMATION: chest pain. FINDINGS: SUPPORT DEVICES: None. HEART / MEDIASTINUM: No significant abnormality. LUNGS / PLEURA: No significant pulmonary or pleural abnormality. No pneumothorax. ADDITIONAL FINDINGS: No significant additional findings. IMPRESSION: 1. No acute findings. Signer Name: Delvin Velazquez MD Signed: 03/21/2021 12:07 AM Workstation Name: [id number]
--- NOTE | 2021-03-21 03:07 | Nuclear Medicine Report ---
Nuclear medicine perfusion scan INDICATION: Chest pain with dyspnea TECHNIQUE: A total of 5.0 mCi technetium 99 MAA injected IV per protocol FINDINGS: No significant perfusion abnormality identified. Chest radiograph from 03/20/2021 utilized f or comparison IMPRESSION: No significant perfusion abnormality identified. Signer Name: Delvin Velazquez MD Signed: 03/21/2021 3:02 AM Workstation Name: [id number]
[2021-03-21 03:48] LABS: Bacteria,Urine 1+ /HPF (Negative); Bilirubin,Urine NEG (Negative); Blood,Urine NEG (Negative); Color,Urine Yellow (Yellow); Mucus,Urine 2+ /HPF; Urobilinogen,Urine < 2.0 mg/dL (<2.0)
[2021-03-21 03:53] VITALS: BP 101/54
--- NOTE | 2021-03-21 13:20 | Electrocardiograph Report ---
[facility] Test Date: 2021-03-20 Test Time: 19:38:17 Pat Name: RISA FLOOD Department: Room: Gender: F Fibreglass Laminator: ROSELIA : 1995 Requested By: NICOL JIMENEZ Order Number: [id number] Reading MD: Vince Vidal Measurements Intervals [place] Rate: 85 P: 64 WV: 124 QRS: 10 QRSD: 83 T: 13 QT: 370 QTc: 441 Interpretive Statements Sinus rhythm No previous ECG available for comparison Electronically Signed On 03-21-2021 13:19:56 EDT by Vince Vidal
== END 2021-03-21 03:53 | disposition home or self-care (01) ==
LOC: ED 19:11
DX: R07.89 Other chest pain (principal); I10 Essential (primary) hypertension; K21.9 Gastro-esophageal reflux disease without esophagitis; G43.909 Migraine, unspecified, not intractable, without status migrainosus; J45.909 Unspecified asthma, uncomplicated; Z98.890 Other specified postprocedural states; Z79.899 Other long term (current) drug therapy
CPT/HCPCS: 36415; 71045; 78580; 80053; 81001; 84484; 84703; 85025; 85610; 85730; 93005; 96374; 96375; 99284; A9540; J2270; J2405